=== PATIENT | male | born 1990 | race African-American/Black ===

== ENCOUNTER 2023-02-19 08:39 | Day surgery (SDC) | payer OTHER ==
[2023-02-19] MEDS ORDERED: Lidocaine 1% PF 5 ML VIAL ONE (08:55)
[2023-02-19] MEDS ORDERED: Sodium Bicarbonate 2.5 MEQ/5 ML VIAL ONE (08:55)
[2023-02-19] MEDS ORDERED: EPINEPHrine 1 MG/ML AMP ONE (08:55)
[2023-02-19] MEDS ORDERED: Magnevist 469MG/ML 20 ML VIAL ONE (09:22)
[2023-02-19] MEDS ORDERED: Iopamidol 370 76% 100 ML VIAL ONE (09:27)
[2023-02-19] MEDS ORDERED: Gadobenate Dimeglumine 529 MG/1 ML (5 ML SDV) ONE (09:27)
== END 2023-02-19 10:15 | disposition home or self-care (01) ==
LOC: CSHRAD 08:39
PROVIDERS: ATTEND Family Medicine Sports Medicine
PROC: BP39Y0Z Magnetic Resonance Imaging (MRI) of Left Shoulder using Other Contrast, Unenhanced and Enhanced (ICD-10-PCS; principal; 2023-02-19)
DX: S43.432A Superior glenoid labrum lesion of left shoulder, initial encounter (principal); M25.312 Other instability, left shoulder; X58.XXXA Exposure to other specified factors, initial encounter
CPT/HCPCS: 23350; J0171